=== PATIENT | male | born 1960 | race Caucasian/White ===

== ENCOUNTER 2022-10-10 03:43 | Emergency (ER) | payer MEDICAID ==
[~2022-10-10] VITALS: Ht 175.3 cm; Wt 100.0 kg
[2022-10-10] MEDS ORDERED: IBUP-2029 MT (09:30)
[2022-10-10] MEDS ORDERED: IBUPROFEN 800MG TABLET PO ONE (10:15)
[2022-10-10] MEDS ORDERED: HYDROCODONE/ACETAMINOPHEN 5/325MG TABLET PO ONE (10:15)
[2022-10-10 11:03] VITALS: BP 134/78
== END 2022-10-10 11:05 | disposition home or self-care (01) ==
LOC: ER 03:43
DX: S52.571A Other intraarticular fracture of lower end of right radius, initial encounter for closed fracture (principal); S01.01XD Laceration without foreign body of scalp, subsequent encounter; X50.1XXA Overexertion from prolonged static or awkward postures, initial encounter; X58.XXXD Exposure to other specified factors, subsequent encounter; E78.00 Pure hypercholesterolemia, unspecified; Y93.89 Activity, other specified; Y92.89 Other specified places as the place of occurrence of the external cause; Y99.8 Other external cause status
CPT/HCPCS: 29125; 73110; 99283; Z7610

== ENCOUNTER 2022-11-10 18:55 | Emergency (ER) | payer MEDICAID, OTHER ==
[~2022-11-10] VITALS: Ht 177.8 cm; Wt 77.0 kg
[~2022-11-10 18:55] MED LIST: IBUP-2029 MT
[2022-11-10 18:57] VITALS: O2SAT 97
[2022-11-10 19:59] VITALS: BP 155/79
[2022-11-10] MEDS ORDERED: IBUPROFEN 400MG TABLET PO ONE (20:00)
[2022-11-10] MEDS ORDERED: ACETAMINOPHEN 325MG TABLET PO ONE (20:00)
[2022-11-10 20:14] VITALS: PULSE 80; RESP 18; TEMP 98.2
== END 2022-11-10 20:00 | disposition home or self-care (01) ==
LOC: ER 18:55
DX: M79.641 Pain in right hand (principal); E78.00 Pure hypercholesterolemia, unspecified
CPT/HCPCS: 99283

== ENCOUNTER 2022-11-10 23:20 | Emergency (ER) | payer OTHER ==
[~2022-11-10] VITALS: Ht 175.3 cm; Wt 86.4 kg
[2022-11-10 23:32] VITALS: BP 140/96; O2SAT 99
[2022-11-11 00:12] VITALS: PULSE 77; RESP 16; TEMP 98.4
== END 2022-11-11 00:10 | disposition home or self-care (01) ==
LOC: ER 23:20
DX: M79.641 Pain in right hand (principal); E78.00 Pure hypercholesterolemia, unspecified; Z76.5 Malingerer [conscious simulation]
CPT/HCPCS: 99281